=== PATIENT | male | born 1945 | race Caucasian/White ===

== ENCOUNTER 2016-07-09 10:06 | Outpatient (CLI) | payer MEDICARE, OTHER | END 2016-07-09 10:07 | disposition home or self-care (01) | DX: I10 Essential (primary) hypertension (principal); R73.01 Impaired fasting glucose; E78.5 Hyperlipidemia, unspecified ==

== ENCOUNTER 2016-08-02 16:42 | Outpatient (CLI) | payer MEDICARE, OTHER | END 2016-08-02 16:43 | disposition home or self-care (01) | DX: M19.071 Primary osteoarthritis, right ankle and foot (principal); M51.36 Other intervertebral disc degeneration, lumbar region; M47.896 Other spondylosis, lumbar region ==

== ENCOUNTER 2016-08-11 14:00 | Outpatient (CLI) | payer MEDICARE, OTHER | END 2016-08-11 14:01 | disposition home or self-care (01) | DX: M51.35 Other intervertebral disc degeneration, thoracolumbar region (principal); M51.36 Other intervertebral disc degeneration, lumbar region; M47.9 Spondylosis, unspecified ==

== ENCOUNTER 2016-09-23 10:47 | Outpatient (CLI) | payer MEDICARE, OTHER | END 2016-09-23 10:48 | disposition home or self-care (01) | LOC: LAB.F 10:47 | PROVIDERS: ATTEND Nurse Practitioner Family | DX: N40.1 Benign prostatic hyperplasia with lower urinary tract symptoms (principal) | CPT/HCPCS: 36415; G0103; 84153 ==

== ENCOUNTER 2017-01-13 10:33 | Outpatient (CLI) | payer MEDICARE, OTHER ==
[2017-01-13 18:15] LABS: CALCIUM 9.3 mg/dL (8.5-10.3); POTASSIUM 5.1 mmol/L (3.5-5.0)
[2017-01-13 18:48] LABS: HEMOGLOBIN A1C 0.5 g/dL
== END 2017-01-13 10:34 | disposition home or self-care (01) ==
LOC: LAB.F 10:33
PROVIDERS: ATTEND Nurse Practitioner Family
DX: R73.01 Impaired fasting glucose (principal)
CPT/HCPCS: 36415; 80048; 83036

== ENCOUNTER 2017-02-21 16:10 | Outpatient (CLI) | payer MEDICARE, OTHER ==
--- NOTE | 2017-02-22 12:38 | XRAY Report ---
TWO-VIEW CHEST: 02/21/2017 CLINICAL INDICATION: COPD exacerbation. COMPARISON: 04/07/2015 FINDINGS: Frontal and lateral views of the chest demonstrate a normal cardiac silhouette. The lungs remain hyperinflated, compatible with COPD. There is a small infiltrate at the right lung base medi ally. No effusion or pneumothorax is seen. IMPRESSION: COPD, WITH A SMALL RIGHT BASILAR INFILTRATE. JOB #: [id number] EXT JOB #:[id number]
== END 2017-02-21 16:11 | disposition home or self-care (01) ==
LOC: DI.S 16:10
PROVIDERS: ATTEND Nurse Practitioner Family
DX: J44.1 Chronic obstructive pulmonary disease with (acute) exacerbation (principal)
CPT/HCPCS: 71020

== ENCOUNTER 2017-03-07 15:50 | Outpatient (CLI) | payer MEDICARE, OTHER | END 2017-03-07 15:51 | disposition home or self-care (01) | LOC: RT.S 15:50 | PROVIDERS: ATTEND Nurse Practitioner Family | DX: R07.89 Other chest pain (principal); I25.10 Atherosclerotic heart disease of native coronary artery without angina pectoris | CPT/HCPCS: 93005 ==

== ENCOUNTER 2017-04-06 13:15 | Outpatient (CLI) | payer MEDICARE, OTHER ==
--- NOTE | 2017-04-07 20:02 | XRAY Report ---
DATE OF SERVICE: 04/06/2017 TWO- VIEW CHEST: 04/06/2017 CLINICAL INDICATION: Followup community-acquired pneumonia. FINDINGS: Frontal and lateral views of the chest are compared to previous films of 02/21/2017. The cardiac silhouette is within normal limits. The lungs remain hyperinflated, compatible with COPD. Previousl y noted right basilar infiltrate has resolved. No effusion or pneumothorax is present. IMPRESSION: Chronic obstructive pulmonary disease. Resolution of previously seen right basilar infi ltrate. TD: 04/07/2017 10:03
== END 2017-04-06 13:16 | disposition home or self-care (01) ==
LOC: DI.S 13:15
PROVIDERS: ATTEND Nurse Practitioner Family
DX: J44.9 Chronic obstructive pulmonary disease, unspecified (principal)
CPT/HCPCS: 71020

== ENCOUNTER 2017-04-29 11:22 | Emergency (ER) | payer MEDICARE, OTHER ==
[2017-04-29] MEDS ORDERED: KETOROLAC 60 MG/2 ML VIAL IM STA (12:34)
[2017-04-29] MEDS ORDERED: DEXAMETHASONE 10 MG/ML VIAL PO STA (12:34)
--- NOTE | 2017-04-29 12:42 | ED Physician Documentation ---
History of Present Illness - Stated complaint Stated Complaint: HIGH BP/NECK PX - Chief complaint Chief Complaint: Back Pain - History obtained from History obtained from: Patient, Family - History of Present Illness Timing: How many days ago (2) Pain level max: 8 Pain level now: 5 Improved by: rest Worsened by: movement - Additonal information Additional information: Patient is a 71-year-old male that started to notice neck pain after chopping wood a few days ago. Since then the pain is continued to increase, worse with movement especially of his head and neck. Better with rest. Took Tylenol today without relief. States that occasionally he will move just right and it will "catch" and send a shooting pain in his spine. No numbness or tingling. No visual changes. No focal neurological deficits. No chest pain. No shortness of breath. No nausea or vomiting Review of Systems Constitutional: denies: Fever, Chills Nose: denies: Rhinorrhea / runny nose, Congestion Throat: denies: Sore throat Cardiac: denies: Chest pain / pressure Respiratory: denies: Cough GI: denies: Abdominal Pain, Nausea, Vomiting, Diarrhea Skin: denies: Rash Musculoskeletal: denies: Back pain Neurologic: denies: Focal weakness, Numbness, Confused, Altered mental status, LOC PD PAST MEDICAL HISTORY - Past Medical History Past Medical History: Yes Cardiovascular: Hypertension, High cholesterol Neuro: Peripheral neuropathy : Retention Psych: Anxiety - Past Surgical History Past Surgical History: Yes - Present Medications Home Medications: Ambulatory Orders Medication Instructions Recorded Confirmed Albuterol [Ventolin Hfa] 2 puffs INH Q4H PRN #1 inhaler 04/07/15 Aspirin [Adult Aspirin Regimen] 1 tab PO DAILY 04/29/17 04/29/17 Atenolol 100 mg PO DAILY 04/29/17 04/29/17 Cyclobenzaprine [Flexeril] 1 tab PO DAILY PRN 04/29/17 04/29/17 Finasteride 1 tab PO DAILY 04/29/17 04/29/17 Gabapentin 600 mg PO BID 04/29/17 04/29/17 HYDROcod/ACETAM 5/325 [[place] 5/325] 1 - 2 tab PO Q6HR PRN 04/29/17 04/29/17 LORazepam [Lorazepam] 1 tab PO BID PRN 04/29/17 04/29/17 Meloxicam [Mobic] 7.5 mg PO BID PRN #20 tablet 04/29/17 Simvastatin 1 tab PO DAILY 04/29/17 04/29/17 Tamsulosin [Flomax] 0.4 mg PO DAILY 04/29/17 04/29/17 - Allergies Allergies/Adverse Reactions: Allergies Allergy/AdvReac Type Severity Reaction Status Date / Time No Known Drug Allergies Allergy Verified 04/29/17 11:29 - Social History Does the pt smoke?: No Smoking Status: Never smoker Does the pt drink ETOH?: No Does the pt have substance abuse?: No - Immunizations Immunizations are current?: Yes PD ED PE NORMAL - Vitals Vital signs reviewed: Yes - General General: Alert and oriented X 3, No acute distress - HEENT HEENT: PERRL, EOMI, Moist mucous membranes - Neck Neck: Supple, no meningeal sign, No bony TTP, No JVD, No bruit, Other (R paraspinal spasm present upper thoracic, low cervical. o/w normal exam. ) - Cardiac Cardiac: RRR, No murmur, Strong equal pulses - Respiratory Respiratory: No respiratory distress, Clear bilaterally - Back Back: No spinal TTP - Derm Derm: Warm and dry - Extremities Extremities: No deformity, No tenderness to palpate, Normal ROM s pain - Neuro Neuro: Alert and oriented X 3, investigations director 2-12 intact, No motor deficit, No sensory deficit, Normal speech - Psych Psych: Normal mood, Normal affect Results - Vitals Vitals: Vital Signs - 24 hr 04/29/17 04/29/17 11:25 12:52 Temperature 36 C L Heart Rate 69 60 Respiratory 18 16 Rate Blood Pressure 142/78 H 150/78 H O2 Saturation 97 98 Oxygen O2 Source Room air PD MEDICAL DECISION MAKING - ED course Complexity details: re-evaluated patient, considered differential, d/w patient, d/w family ED course: Patient is a 71-year-old male who presents to the emergency department with what appears to be a neck and back strain. Possible pinched nerve? Given dexamethasone and Toradol. Feels better. No neurological deficits. No evidence of aortic dissection, vertebral artery dissection. No evidence of fracture. Has hydrocodone and Flexeril at home for his usual back pain, but has not been taking this. We will trial him on this and have him follow-up with his doctor for further care. Patient and family counseled regarding signs and symptoms for which I believe and urgent re-evaluation would be necessary. Patient with good understanding of and agreement to plan and is comfortable going home at this time This document was made in part using voice recognition software. While efforts are made to proofread this document, sound alike and grammatical errors may occur. Departure - Departure Disposition: 01 Home, Self Care Clinical Impression: Neck muscle strain Qualifiers: Encounter type: initial encounter Qualified Code(s): S16.1XXA - Strain of muscle, fascia and tendon at neck level, initial encounter Condition: Good Instructions: ED Sprain Strain Neck Follow-Up: Silvia Huerta ARNP [Primary Care Provider] - Within 1 week Prescriptions: Meloxicam [Mobic] 7.5 mg PO BID PRN #20 tablet PRN Reason: Pain Comments: Return if you worsen. This should improve over the next few days. You can use your Vicodin and Flexeril at home as needed for pain. Do not drink alcohol or drive while on narcotic pain medicine. Note that many narcotic pain relievers also contain tylenol/acetaminophen. Please ensure that your total dose of acetaminophen from all sources does not exceed 3 grams (3000mg) per day. You may constipated on this medication, take a stool softener such as "Colace" twice a day while you are on it. Also recommend a crgh-[id number]-tvavbja laxative such as senna or MiraLAX any day that you do not have a bowel movement. If you received narcotic pain medication in the emergency department, do not drive or operate machinery for the next 24 hours. Discharge Date/Time: 04/29/17 13:22
[2017-04-29 12:52] VITALS: BP 150/78
[2017-04-29] MEDS ORDERED: HYDROcod/ACETAM 5/325 MG TABLET PO STA (13:04)
[2017-04-29] MEDS ORDERED: CYCLOBENZAPRINE 10 MG TABLET PO STA (13:04)
== END 2017-04-29 13:22 | disposition home or self-care (01) ==
LOC: ED 11:22
DX: S16.1XXA Strain of muscle, fascia and tendon at neck level, initial encounter (principal); X50.3XXA Overexertion from repetitive movements, initial encounter; Y93.89 Activity, other specified; I10 Essential (primary) hypertension; E78.00 Pure hypercholesterolemia, unspecified; G62.9 Polyneuropathy, unspecified; Z79.82 Long term (current) use of aspirin
CPT/HCPCS: 96372; 99283; A9270

== ENCOUNTER 2017-05-12 13:27 | Outpatient (CLI) | payer MEDICARE, OTHER | END 2017-05-12 13:28 | disposition home or self-care (01) | LOC: LAB.F 13:27 | PROVIDERS: ATTEND Nurse Practitioner Family | DX: R22.41 Localized swelling, mass and lump, right lower limb (principal) | CPT/HCPCS: 36415; 85379 ==

== ENCOUNTER 2017-06-21 10:37 | Outpatient (CLI) | payer MEDICARE, OTHER ==
--- NOTE | 2017-06-21 14:41 | XRAY Report ---
CERVICAL SPINE: 06/21/2017 COMPARISON: No comparison. INDICATION: Neck pain and paresthesias. TECHNIQUE: Seven views. FINDINGS: There is moderate disk space narrowing at C5-C6 and C6-7. There are moderate anterior osteophytes at multiple levels. Osteophytes cause narrowing of the bony neural foramina as follows: RIGHT: C3-C4 mild to moderate, C4-C5 mild, C5-C6 mild, C6-C7, mild. LEFT: C3-C4 moderate, C4-C5 mild, C5-C6 moderate, C6-C7 mild. No evidence of acute fracture. Normal alignment. Prevertebral soft tissues appear unremarkable. The lateral masses are symmetric. There is calcification of the nuchal ligament. IMPRESSION: MODERATE CERVICAL SPONDYLOSIS. TD: 06/21/2017 14:40 MTDD
== END 2017-06-21 10:38 | disposition home or self-care (01) ==
LOC: DI.S 10:37
PROVIDERS: ATTEND Nurse Practitioner Family
DX: M47.892 Other spondylosis, cervical region (principal)
CPT/HCPCS: 72052

== ENCOUNTER 2017-07-15 17:25 | Outpatient (CLI) | payer MEDICARE, OTHER | END 2017-07-15 17:26 | disposition short-term general hospital (02) | LOC: EMS 17:25 | PROVIDERS: ATTEND Surgery | DX: G81.91 Hemiplegia, unspecified affecting right dominant side (principal) | CPT/HCPCS: A0425; A0427 ==